=== PATIENT | female | born 1990 | race Caucasian/White ===

== ENCOUNTER 2016-10-24 07:39 | Emergency (ER) | payer MEDICAID ==
[2016-10-24] MEDS ORDERED: DILAUDID 1 MG/ML AMP ONE (09:06)
[2016-10-24] MEDS ORDERED: ONDANSETRON 4 MG VIAL ONE (09:06)
[2016-10-24] MEDS ORDERED: KETOROLAC 30 MG/ML VIAL ONE (09:07)
== END 2016-10-24 09:37 | disposition home or self-care (01) ==
LOC: ER 07:39
CPT/HCPCS: 81001; 87088; 96374; 96375

== ENCOUNTER 2016-11-20 18:49 | Emergency (ER) | payer MEDICAID ==
[2016-11-20] MEDS ORDERED: SODIUM CHLORIDE 0.9% 1,000 ML ONE (20:08)
[2016-11-20] MEDS ORDERED: ONDANSETRON 4 MG VIAL ONE (20:08)
[2016-11-20] MEDS ORDERED: ACETAMINOPHEN 325 MG TAB ONE (20:45)
[2016-11-20] MEDS ORDERED: KETOROLAC 30 MG/ML VIAL ONE (21:10)
== END 2016-11-20 21:54 | disposition home or self-care (01) ==
LOC: ER 18:49
DX: M54.6 Pain in thoracic spine (principal); M10.9 Gout, unspecified
CPT/HCPCS: 36415; 74000; 80053; 81003; 83690; 84703; 85025; 96361; 96374; 96375